=== PATIENT | male | born 1960 | race Caucasian/White ===

== ENCOUNTER → 2018-03-31 15:25 | Outpatient (CLI) | payer OTHER, MEDICAID, SELFPAY ==
--- NOTE | 2018-03-31 | DI.RAD.S_ITS ---
PROCEDURE: XR CHEST 2V INDICATIONS: DYSPNEA ON EXERTION TECHNIQUE: 2 views of the chest were acquired. COMPARISON: , , CHEST 2 VIEW, 10/27/2016, 15:51. FINDINGS: Surgical changes and devices: None. Lungs and pleura: Small right pleural effusions is unchanged, no pneumothorax. Lungs are clear. Mediastinum: Mediastinal contours are normal. Heart size is normal. Bones and chest wall: No suspicious bony abnormalities. Soft tissues appear unremarkable. IMPRESSION: No interval change with right pleural effusion again noted. Dictated by: Garland Germain M.D. on 03/31/2018 at 16:47 Approved by: Garland Germain M.D. on 03/31/2018 at 16:49
== END ==
PROVIDERS: PCP Nurse Practitioner; Visit Provider Internal Medicine Cardiovascular Disease
DX: J90 Pleural effusion, not elsewhere classified (principal); R06.09 Other forms of dyspnea
CPT/HCPCS: 71046

== ENCOUNTER 2021-07-19 12:37 | Emergency (ER) | payer OTHER, MEDICAID, SELFPAY ==
[2021-07-19 13:04] VITALS: BP 146/97; PULSE 83; RESP 18; TEMP 36.8; O2SAT 97; BMI 34.2
[2021-07-19] MEDS: PROPARACAINE 0.5% OPHTH SOL 1 DROPS EYE-LEFT (13:32)
[2021-07-19] MEDS: FLUORESCEIN 1 MG STRIP EYE-LEFT (13:32)
--- NOTE | 2021-07-19 13:35 | ED_ITS ---
HPI - Eye Problem <EVA Barnett - Last Filed: 07/19/21 14:40> General Chief complaint: Eye Problems Stated complaint: Left eye pain Time Seen by Provider: 07/19/21 12:59 Source: patient Mode of arrival: Ambulatory History of Present Illness HPI Narrative: 60 year old male presents to the emergency department with 2 days of left eye redness, tearing and pain. Patient reports that he could have gotten something into his eye but he does not know what. He reports that he feels like something is in his eye and he endorses that the center of his field of vision was blurry previously, currently it is not blurry. He reports that he has had foreign bodies in his eye previously and this feels similar although he does not recall having anything in his eye. He thinks he may have pressure something out of his eye couple days ago. Patient denies any current vision changes, denies a history of shingles and reports that he has had his shingles vaccine, denies any recent illness. He denies any headache, dizziness, or any neurological changes. He reports that he always has a small bump on the inner aspect of his left eye from a previous injury but it hasnever this painful. Eye Symptoms: burning, redness, pain and foreign body sensation Related Data Patient tetanus UTD: Yes Previous Rx's Medication Instructions Recorded lisinopril 10 mg tablet 10 mg PO QDAY #30 tab 10/27/16 metformin 1,000 mg tablet 1,000 mg PO BIDCC #180 tab 10/27/16 (Glucophage) Glucose: Home Monitor ea TD TID #1 11/03/16 Glucose: Test Strips str TD TID #90 11/03/16 hydroxychloroquine 200 mg tablet 200 mg PO BIDCC #30 tab 04/01/17 (Plaquenil) Allergies Allergy/AdvReac Type Severity Reaction Status Date / Time benzonatate [BENZONATATE] Allergy Unknown Verified 07/19/21 13:11 sertraline [SERTRALINE] Allergy Unknown Verified 07/19/21 13:11 valproic acid [VALPROIC ACID] Allergy Unknown Verified 07/19/21 13:11 venlafaxine [VENLAFAXINE] Allergy Unknown Verified 07/19/21 13:11 Review of Systems <EVA Barnett - Last Filed: 07/19/21 14:40> Review of Systems Narrative: General: denies fever, chills Head/Neck: denies headache, neck pain Eyes: denies visual changes, endorses having left eye pain and redness Cardio: denies chest pain, palpitations Respiratory: denies shortness of breath, cough GI: denies abdominal pain, nausea, vomiting, or diarrhea : denies dysuria, hematuria MSK: denies joint pain, muscle weakness Skin: denies rash, itching Neuro: denies numbness, tingling Patient History <EVA Barnett - Last Filed: 07/19/21 14:40> Social History Smoking Status: Current every day smoker Smoking Status: Current every day smoker alcohol intake frequency: holidays/special occasions only Substance Use Type: marijuana Exam <EVA Barnett - Last Filed: 07/19/21 14:40> Narrative Exam Narrative: Independently reviewed vitals signs and nursing notes. General: Awake, alert, nontoxic, no cardiorespiratory distress Head/Neck: Atraumatic, neck full range of motion Eyes: EOMI, conjunctiva with left lower chalazion, it is white, left conjunctiva was injected, fluorescein exam of left eye is without any visible defects or scratches on the cornea visual acuity of left is 20/15, right 20/25, both is . Nose: nares patent, no rhinorrhea Mouth/Throat: moist mucus membranes, posterior pharynx normal, no oral lesions Cardio: Regular rate and rhythm, no peripheral edema Respiratory: respirations unlabored without wheezing, stridor, or rales. No retractions. GI: Abdomen soft, nontender MSK: Moves all extremities, neurovascularly intact Skin: Normal capillary refill, no rash Neuro: Normal speech and cognition, normal gait Initial Vital Signs Initial Vital Signs: Vital Signs Temperature 98.2 F 07/19/21 13:04 Pulse Rate 83 07/19/21 13:04 Respiratory Rate 18 07/19/21 13:04 Blood Pressure 146/97 H 07/19/21 13:04 Pulse Oximetry 97 07/19/21 13:04 Course <EVA Barnett - Last Filed: 07/19/21 14:40> Orders Ordered: Discontinued Medications Fluorescein Sodium (Fluorescein 1 Mg Strip) 1 mg EYE-LEFT NOW ONE Stop: 07/19/21 13:13 Last Admin: 07/19/21 13:32 Dose: 1 mg Documented by: GABRIEL Proparacaine HCl (Proparacaine 0.5% Ophth Nimisha) 1 drops EYE-LEFT NOW ONE Stop: 07/19/21 13:13 Last Admin: 07/19/21 13:32 Dose: 1 1000units Documented by: GABRIEL Vital Signs Vital signs: Vital Signs - 8 hr 07/19/21 13:04 07/19/21 14:14 Temperature 98.2 F Pulse Rate 83 78 Respiratory Rate 18 Blood Pressure 146/97 H 134/76 Pulse Oximetry 97 98 MDM - Eye Problem <EVA Barnett - Last Filed: 07/19/21 14:40> MDM Narrative Medical decision making narrative: 60-year-old male presents to the emergency department with 2 days of left eye pain. On exam patient has a left lower lid to exam approximately 5 mm in diameter, no exudate was expressible at this time. Fluorescein exam did not show any corneal abrasions or defects. No foreign bodies were visualized either. Patient's left eye has some surrounding erythema where his chalazion has been rubbing on his globe. Differential includes hordeola, molluscum contagiosum, benign epi, squamous papilloma, dermoid cyst, epidermal inclusion cyst. Patient is appropriate and amenable to discharge home. Patient was sent home with instructions to do warm compresses at least 4 times a day and follow up with his PCP otherwise he was referred to Ophthalmology if this is persistent. Vital signs are stable on repeat examination is unremarkable. Patient has been informed of results. Patient has been given strict return to ER precautions for any new or worsening symptoms. Patient understands to follow up closely with outpatient providers as instructed. Patient understands plan and agrees to discharge home. All questions and concerns answered at this time. Discharge Plan Departure Patient Disposition: Home Clinical Impression: Chalazion left lower eyelid Activity Restrictions/Additional Instructions: *You have been diagnosed with a chalazion on your left lower lid. I suspect that this is recurrent in the same area where you previously had a foreign body go through your lower eyelid. This is a collection of cells, it is not infected at this time however please follow-up with ophthalmology if you notice it starting to get worse. Please do warm compresses to your left eye 4 times a day for at least 15 minutes a time. See if the discharge comes out of the white bump on your lower eyelid,it may in the next couple of days. If it does not, please follow-up with ophthalmology. Or return to the emergency department if you have any worsening as he may need antibiotics at that time. Please get a eye lubricant which will help with her comfort of your left eye. *What to do: *Please continue to take your regular medications as directed. [ ] New medication prescriptions sent to your pharmacy: [ ] [ ] New medication written as a paper prescription [ x] No new medications given *Please follow up with your primary care provider in 2-3 days, call for an appointment. Let them know you were seen in the Emergency Department and that we ask that you be seen in follow up. We will electronically transmit a record of today's note if your PCP is in our system *If you do not have a primary care provider please contact the [facility] Resource line at [phone]. They will ask some questions about your medical history and help get you set up with a doctor in the community. *Return to Emergency Department if you should have any new, worsening or concerning symptoms, such as [fever greater than 101F, chills, worsening pain, persistent vomiting or other bothersome symptoms] Prescriptions: No Action metformin [Glucophage] 1,000 MG tablet 1,000 mg PO BIDCC Qty: 180 3RF lisinopril 10 MG tablet 10 mg PO QDAY Qty: 30 12RF Glucose: Home Monitor TD TID Qty: 1 0RF Glucose: Test Strips TD TID Qty: 90 12RF hydroxychloroquine [Plaquenil] 200 MG tablet 200 mg PO BIDCC Qty: 30 0RF Referrals: Jing Fischer MD [Physician] - 5-7 days (if not improving with warm compresses)
[2021-07-19 14:14] VITALS: BP 134/76; PULSE 78; O2SAT 98
== END 2021-07-19 14:17 | disposition home or self-care (01) ==
PROVIDERS: Emergency Provider Nurse Practitioner Critical Care Medicine
DX: H00.15 Chalazion left lower eyelid (principal); F17.200 Nicotine dependence, unspecified, uncomplicated; Z88.8 Allergy status to other drugs, medicaments and biological substances
CPT/HCPCS: 99282